=== PATIENT | male | born 1940 | race Caucasian/White ===

== ENCOUNTER 2017-06-15 07:48 | Inpatient (IN) | payer OTHER, MEDICAID ==
[~2017-06-15] VITALS: Ht 162.6 cm; Wt 103.9 kg
[~2017-06-15 07:48] MED LIST: ALBMDI INH; ASPI-1063 PO; BUDE6HFA INH; CLOP75TA2 PO; COR3.125 PO; GLU500 PO; LASI20 IVP; LIP40 PO; LOSA50TA20 PO; TAMS-11 PO; TEMA30CA PO
[2017-06-15] MEDS ORDERED: CEFAZOLIN SOD 1 GM/ ISO 50 ML PREMIX IV ONE (08:45)
[2017-06-15] MEDS ORDERED: LevALBUTEROL HCL 1.25 MG/0.5 ML *CONC.* VIAL.NEB (XOPENEX CONC.) INH ONE ×2 (08:45→08:50)
[2017-06-15] MEDS ORDERED: D5/0.45 NS 1,000 ML IV ONE (09:27)
[2017-06-15] MEDS: CEFAZOLIN 1 GM IVPB PREMIX 50 ML IV SCH ×2 (09:30→17:48)
[2017-06-15] MEDS ORDERED: BISACODYL 10 MG/SUPPOSITORY RC PRN (09:30)
[2017-06-15] MEDS ORDERED: CEFAZOLIN SOD 2 GM in D5W 50 ML IV ONE (09:30)
[2017-06-15] MEDS ORDERED: ACETAMINOPHEN 325 MG TABLET PO PRN (09:30)
[2017-06-15] MEDS ORDERED: NALOXONE HCL 1 MG in NACL 0.9% 1,000 ML IV PRN (11:05)
[2017-06-15] MEDS ORDERED: LR 1,000 ML IV SCH (11:05)
[2017-06-15] MEDS ORDERED: HYDROmorphone 2 MG/ML VIAL IVP PRN ×2 (11:15)
[2017-06-15] MEDS ORDERED: HYDROmorphone 1 MG INJ. 1 MG/ML AMPUL IVP PRN (11:15)
[2017-06-15] MEDS ORDERED: NALOXONE HCL 0.4 MG/ML AMP (NARCAN) IVP PRN ×3 (11:15)
[2017-06-15] MEDS ORDERED: KETOROLAC TROMETHAMINE 60 MG/2 ML VIAL IM PRN (11:15)
[2017-06-15] MEDS ORDERED: DIPHENHYDRAMINE INJ 50 MG/ML VIAL IVP PRN (11:15)
[2017-06-15] MEDS ORDERED: MEPERIDINE HCL/PF 25 MG/ML DISP.SYRIN IVP PRN ×2 (11:15)
[2017-06-15] MEDS ORDERED: DIPHENHYDRAMINE HCL 50 MG CAPSULE PO PRN (11:15)
[2017-06-15] MEDS ORDERED: ONDANSETRON HCL 4 MG/2 ML VIAL IVP PRN (11:15)
[2017-06-15 13:00] VITALS: BP_SYST 141
[2017-06-15] MEDS ORDERED: DEXTROSE 50% JECT 50 ML DISP.SYRIN IVP PRN (17:45)
[2017-06-15] MEDS ORDERED: ALBUTEROL SULFATE 0.083% 2.5 MG/3 ML VIAL.NEB INH PRN (17:45)
[2017-06-15] MEDS ORDERED: INSULIN REGULAR, HUMAN 100 UNITS/ML, 10 ML VIAL (novoLIN R) SUBCUT PRN (17:45)
[2017-06-15] MEDS ORDERED: IPRATROPIUM BROM 0.5 MG/2.5 ML VIAL.NEB (ATROVENT) INH PRN (17:45)
[2017-06-15] MEDS: ALBUTEROL SULFATE 0.083% 2.5 MG/3 ML VIAL.NEB INH SCH ×3 (19:00→23:00)
[2017-06-15] MEDS: IPRATROPIUM BROM 0.5 MG/2.5 ML VIAL.NEB (ATROVENT) INH SCH ×3 (19:00→23:00)
[2017-06-15 20:00] VITALS: BP_SYST 143
[2017-06-15] MEDS: CARVEDILOL 3.125 MG TABLET (COREG) PO SCH (20:43)
[2017-06-16 00:07] VITALS: BP_SYST 96
[2017-06-16] MEDS: HYDROcodone/ACETAMIN 7.5-325 MG TAB PO PRN ×3 (01:48→11:13)
[2017-06-16] MEDS: ALBUTEROL SULFATE 0.083% 2.5 MG/3 ML VIAL.NEB INH SCH ×6 (03:00→23:00)
[2017-06-16] MEDS: IPRATROPIUM BROM 0.5 MG/2.5 ML VIAL.NEB (ATROVENT) INH SCH ×6 (03:00→23:00)
[2017-06-16 04:59] VITALS: BP_SYST 106
[2017-06-16 06:40] LABS: BASOPHILS % (AUTO) 0.4 % (0.0-2.0); EOSINOPHILS # (AUTO) 0.1 K/uL (0.0-0.4); EOSINOPHILS % (AUTO) 0.6 % (0.0-4.0); HEMATOCRIT 34.2 % (36-54); LYMPHOCYTES # (AUTO) 1.5 K/uL (1.0-5.5); LYMPHOCYTES % (AUTO) 13.2 % (20.5-51.5); MEAN CORPUSCULAR HEMOGLOBIN 32 pg (27-31); MEAN CORPUSCULAR HGB CONC 35 % (32-36); MEAN CORPUSCULAR VOLUME 92 fL (79.0-98.0); MONOCYTES # (AUTO) 1.1 K/uL (0.0-1.0); MONOCYTES % (AUTO) 9.5 % (1.7-9.3); NEUTROPHILS % (AUTO) 76.3 % (40.0-70.0); PLATELET COUNT (AUTO) 149 K/uL (130-430); RED BLOOD CELL COUNT(AUTO) 3.74 MIL/uL (4.2-6.2); RED CELL DISTRIBUTION WIDTH 13.3 % (9.0-15.0); WHITE BLOOD COUNT (AUTO) 11.7 K/uL (4.8-10.8)
[2017-06-16 06:54] LABS: ALANINE AMINOTRANSFERASE 29 U/L (12-78); ALBUMIN 3.1 g/dL (3.4-4.8); ANION GAP 6 (5-15); ASPARTATE AMINOTRANSFERASE 51 U/L (10-37); CALCIUM 8.4 mg/dL (8.4-11.0); CHLORIDE 101 mmol/L (98-107); CREATININE 1.65 mg/dL (0.55-1.30); GLUCOSE 142 mg/dL (70-99); POTASSIUM 4.4 mmol/L (3.5-5.1); SODIUM SERUM 133 mmol/L (136-145); TOTAL BILIRUBIN 1.1 mg/dL (0.0-1.0); UREA NITROGEN, BLOOD 24 mg/dL (8-21)
[2017-06-16 08:24] VITALS: BP_SYST 120
[2017-06-16] MEDS: RIVAROXABAN 10 MG TABLET PO SCH (08:27)
[2017-06-16] MEDS: LOSARTAN POTASSIUM 50 MG TABLET (COZAAR) PO SCH (08:28)
[2017-06-16] MEDS: CARVEDILOL 3.125 MG TABLET (COREG) PO SCH ×2 (08:28→21:44)
[2017-06-16] MEDS: TAMSULOSIN HCL 0.4 MG CAP PO SCH (08:28)
[2017-06-16] MEDS: MORPHINE SULFATE 10 MG/ML VIAL IM PRN ×3 (08:42→19:52)
[2017-06-16] MEDS: FLUTICASONE/VILANTEROL 1 EACH BLST.W.DEV INH SCH (09:00)
[2017-06-16] MEDS: ATORVASTATIN 20 MG TABLET PO SCH (09:50)
[2017-06-16 11:48] VITALS: BP_SYST 106
[2017-06-16 17:58] VITALS: BP_SYST 122
[2017-06-16 20:14] VITALS: BP_SYST 133
[2017-06-17 00:45] VITALS: BP_SYST 125
[2017-06-17] MEDS: HYDROcodone/ACETAMIN 7.5-325 MG TAB PO PRN ×3 (01:30→15:20)
[2017-06-17] MEDS: ALBUTEROL SULFATE 0.083% 2.5 MG/3 ML VIAL.NEB INH SCH ×4 (03:00→15:51)
[2017-06-17] MEDS: IPRATROPIUM BROM 0.5 MG/2.5 ML VIAL.NEB (ATROVENT) INH SCH ×4 (03:00→15:51)
[2017-06-17 04:40] VITALS: BP_SYST 122
[2017-06-17 08:00] VITALS: BP_SYST 138
[2017-06-17] MEDS: CARVEDILOL 3.125 MG TABLET (COREG) PO SCH (08:08)
[2017-06-17] MEDS: TAMSULOSIN HCL 0.4 MG CAP PO SCH (08:09)
[2017-06-17] MEDS: LOSARTAN POTASSIUM 50 MG TABLET (COZAAR) PO SCH (08:09)
[2017-06-17] MEDS: ATORVASTATIN 20 MG TABLET PO SCH (08:09)
[2017-06-17] MEDS: RIVAROXABAN 10 MG TABLET PO SCH (08:09)
[2017-06-17] MEDS: FLUTICASONE/VILANTEROL 1 EACH BLST.W.DEV INH SCH (08:10)
[2017-06-17 13:12] VITALS: BP_SYST 110
[2017-06-17 14:28] VITALS: BP_SYST 110
[2017-06-17] MEDS: MORPHINE SULFATE 10 MG/ML VIAL IM PRN (14:45)
[2017-06-17 17:07] VITALS: BP_SYST 123
== END 2017-06-17 16:45 | DRG 470 ==
LOC: STU 07:48 → SMU 15:10
PROVIDERS: ADMIT Orthopaedic Surgery; ATTEND Orthopaedic Surgery
PROC: 0SRD0J9 Replacement of Left Knee Joint with Synthetic Substitute, Cemented, Open Approach (ICD-10-PCS; principal; 2017-06-15 10:15)
DX: M17.12 Unilateral primary osteoarthritis, left knee (principal); J44.9 Chronic obstructive pulmonary disease, unspecified; E11.9 Type 2 diabetes mellitus without complications; I10 Essential (primary) hypertension; F17.200 Nicotine dependence, unspecified, uncomplicated; I25.10 Atherosclerotic heart disease of native coronary artery without angina pectoris; Z96.649 Presence of unspecified artificial hip joint; Z95.5 Presence of coronary angioplasty implant and graft
CPT/HCPCS: 36415; 80053; 82962; 85025; 87081; 88305; 88311; 94640; 94660; 94760; 97039; 97110-GP; 97116-GP; 97530-GP; C1713; C1776; J0690; J1885; J2270; J2310; J7030; J7060; J7120; Q0163

== ENCOUNTER 2019-10-09 07:43 | Emergency (ER) | payer OTHER, MEDICAID ==
[~2019-10-09] VITALS: Ht 162.6 cm; Wt 108.9 kg
[2019-10-09 07:43] VITALS: BP_SYST 174
[~2019-10-09 07:43] MED LIST changes: -ASPI-1063 PO; +ASPI-1153 PO; -GLU500 PO; -LASI20 IVP; -LOSA50TA20 PO; +LOSA50TA28 PO
--- NOTE | 2019-10-09 07:43 | NUR ---
Placed in room 3 . Placed on cardiac cath lab manager, blood pressure machine and pulse oximeter. To gown for exam. Side rails up. Report given to Zoë RN and Oswaldo RN.
[2019-10-09] MEDS ORDERED: NACL 0.9% 1,000 ML IV ONE (07:49)
[2019-10-09] MEDS ORDERED: ALBUTEROL SULFATE 0.083% 2.5 MG/3 ML VIAL.NEB INH ONE ×2 (08:00→10:30)
[2019-10-09] MEDS ORDERED: methylPREDNISolone SOD SUCC/PF 62.5 MG/ML VIAL IVP ONE (08:00)
[2019-10-09] MEDS ORDERED: IPRATROPIUM BROM 0.5 MG/2.5 ML VIAL.NEB (ATROVENT) INH ONE ×2 (08:00→10:30)
[2019-10-09] MEDS ORDERED: cefTRIAXone 1 GM IVPB PREMIX 50 ML IV ONE (08:00)
--- NOTE | 2019-10-09 08:00 | NUR ---
PT IN ER FOR SOB AND COUGH. PT CURRENTLY ON O2 BY NASAL CANNULA O2 SAT WNL, COMFORTABLE AND ON CUSTOMS BROKERAGE MANAGER
--- NOTE | 2019-10-09 08:06 | NUR ---
Spoke with Pérez Arias, patients ex-. She states she is the emergency contact for him, and knows his history well. Patient is a poor historian. Given a phone number [phone] for any questions or concerns.
--- NOTE | 2019-10-09 08:10 | NUR ---
ER at bedside examining patient.
[2019-10-09 08:43] LABS: BILIRUBIN,URINE NEGATIVE (NEGATIVE); BLOOD, URINE TRACE (NEGATIVE); CLARITY/URINE CLEAR (CLEAR); COLOR,URINE YELLOW (YELLOW); GLUCOSE,URINE NEGATIVE (NEGATIVE); KETONES,URINE NEGATIVE (NEGATIVE); LEUKOCYTE ESTERASE ,URINE NEGATIVE (NEGATIVE); NITRITE, URINE NEGATIVE (NEGATIVE); PH,URINE 5.5 (5.0-8.0); PROTEIN URINE 1+ (NEGATIVE); UROBILINOGEN,URINE 0.2 (0.2-1.0)
[2019-10-09 08:53] LABS: BACTERIA,URINE RARE /HPF (None Seen); WBC,URINE 0-3 /HPF (0-3)
[2019-10-09 09:03] LABS: BASOPHILS # (AUTO) 0.1 K/uL (0.0-0.2); BASOPHILS % (AUTO) 0.5 % (0.0-2.0); EOSINOPHILS # (AUTO) 0.1 K/uL (0.0-0.4); EOSINOPHILS % (AUTO) 1.1 % (0.0-4.0); HEMATOCRIT 41.9 % (36-54); LYMPHOCYTES # (AUTO) 0.7 K/uL (1.0-5.5); MEAN CORPUSCULAR HEMOGLOBIN 31 pg (27-31); MEAN CORPUSCULAR HGB CONC 33 % (32-36); MEAN CORPUSCULAR VOLUME 94 fL (79.0-98.0); MONOCYTES # (AUTO) 0.7 K/uL (0.0-1.0); MONOCYTES % (AUTO) 6.1 % (1.7-9.3); NEUTROPHILS # (AUTO) 10.3 K/uL (1.8-7.7); NEUTROPHILS % (AUTO) 86.3 % (40.0-70.0); PLATELET COUNT (AUTO) 149 K/uL (130-430); RED BLOOD CELL COUNT(AUTO) 4.48 MIL/uL (4.2-6.2); RED CELL DISTRIBUTION WIDTH 14.7 % (9.0-15.0); WHITE BLOOD COUNT (AUTO) 11.9 K/uL (4.8-10.8)
--- NOTE | 2019-10-09 09:05 | NUR ---
EKG performed at by GAUTAM. Physician given copy of EKG for review.
[2019-10-09 09:14] LABS: PROTHROMBIN TIME 9.9 SECS (9.5-12.5)
[2019-10-09 09:17] LABS: ANION GAP 10 (5-15); CALCIUM 8.5 mg/dL (8.4-11.0); CHLORIDE 101 mmol/L (98-107); CREATININE 1.23 mg/dL (0.55-1.30); GLUCOSE 188 mg/dL (70-99); POTASSIUM 4.4 mmol/L (3.5-5.1); SODIUM SERUM 136 mmol/L (136-145); UREA NITROGEN, BLOOD 19 mg/dL (8-21)
[2019-10-09 09:21] LABS: ALANINE AMINOTRANSFERASE 37 U/L (12-78); ALBUMIN 3.7 g/dL (3.4-4.8); AMYLASE 72 U/L (0-100); ASPARTATE AMINOTRANSFERASE 23 U/L (10-37); LIPASE 134 U/L (73-393); TOTAL BILIRUBIN 0.8 mg/dL (0.0-1.0)
--- NOTE | 2019-10-09 10:17 | NUR ---
PT VSS, RESTING COMFORTABLY IN BED
--- NOTE | 2019-10-09 11:15 | NUR ---
[facility] in [facility] - 10/09/19 at 1157 by SDEDDW PT PULLED OFF RESTRAINTS, BECOMING MORE NONCOMPLIANT WITH CARE.
[2019-10-09 11:54] VITALS: BP_SYST 144
--- NOTE | 2019-10-09 11:55 | NUR ---
Patient given written and verbal discharge instructions and verbalizes understanding. ER MD discussed with patient the results and treatment provided. Patient in stable condition. ID arm band removed. IV catheter removed intact and dressing applied, no active bleeding. Rx of ROBITUSSIN, ALBUTEROL, PREDNISONE given. Patient educated on pain management and to follow up with PMD. Pain Scale 0. Opportunity for questions provided and answered. Medication side effect fact sheet provided.
== END 2019-10-09 11:55 | disposition home or self-care (01) ==
LOC: SED 07:43
DX: J44.1 Chronic obstructive pulmonary disease with (acute) exacerbation (principal); I11.9 Hypertensive heart disease without heart failure; J45.909 Unspecified asthma, uncomplicated; F03.90 Unspecified dementia, unspecified severity, without behavioral disturbance, psychotic disturbance, mood disturbance, and anxiety; Z79.82 Long term (current) use of aspirin; Z79.01 Long term (current) use of anticoagulants; Z79.899 Other long term (current) drug therapy
CPT/HCPCS: 36415; 71045; 80053; 81000; 82150; 82550; 83605; 83690; 83880; 84484; 85025; 85610; 85730; 87040; 93005; 94640; 96365; 96375; 99284; J0696; J2930; J7030; J7613